=== PATIENT | male | born 1995 | race Caucasian/White ===

== ENCOUNTER 2020-08-23 01:17 | Emergency (ER) | payer SELFPAY ==
[2020-08-23] MEDS ORDERED: Lidocaine 1% 20 ML MDV INJECT ONE (01:58)
--- NOTE | 2020-08-23 01:58 | EDM.PDOC ---
ED HPI GENERAL MEDICAL PROBLEM - General Chief Complaint: Laceration Stated Complaint: cut on lip Time Seen by Provider: 08/23/20 01:42 Source of Information: Reports: Patient History Limitations: Reports: No Limitations - History of Present Illness INITIAL COMMENTS - FREE TEXT/NARRATIVE: This is a 25-year-old male. Around 1230 this morning he fell down 12 steps and has a small laceration to his lower lip and also hurt his left shoulder. He denies biting his tongue or chipping any of his teeth. He denies hitting his head or loss of consciousness. He is up-to-date with his tetanus. He denies any other injuries. Left Shoulder Pain Score (Numeric/FACES): 7 Lower Lip Pain Score (Numeric/FACES): 9 - Related Data Allergies Allergy/AdvReac Type Severity Reaction Status Date / Time Penicillins Allergy Severe Anaphylactic Verified 08/23/20 01:36 Shock pineapple Allergy Severe Anaphylactic Verified 08/23/20 01:36 Shock strawberry Allergy Severe Anaphylactic Verified 08/23/20 01:36 Shock Home Meds: Home Meds . [No Known Home Meds] 08/23/20 [History] Past Medical History Musculoskeletal History: Reports: Fracture Other Musculoskeletal History: right hand fx x 3, carrion fx, elbow fx - Infectious Disease History Infectious Disease History: Reports: Chicken Pox Social & Family History - Family History Family Medical History: No Pertinent Family History - Tobacco Use Tobacco Use Status *Q: Current Every Day Tobacco User Years of Tobacco use: 10 Packs/Tins Daily: 1 - Caffeine Use Caffeine Use: Reports: Energy Drinks - Recreational Drug Use Recreational Drug Use: Yes Drug Use in Last 12 Months: Yes Recreational Drug Type: Reports: Marijuana/Hashish ED ROS GENERAL - Review of Systems Review Of Systems: See Below Constitutional: Denies: Fever, Chills HEENT: Reports: Other (As per HPI) Respiratory: Reports: No Symptoms Cardiovascular: Reports: No Symptoms Endocrine: Reports: No Symptoms GI/Abdominal: Reports: No Symptoms : Reports: No Symptoms Musculoskeletal: Reports: Other (As per HPI) Skin: Reports: Other (As per HPI) Neurological: Reports: No Symptoms Psychiatric: Reports: No Symptoms ED EXAM, SKIN/RASH Exam: See Below Exam Limited By: No Limitations General Appearance: Alert, WD/WN, No Apparent Distress Eye Exam: Bilateral Eye: Normal Inspection Ears: Normal External Exam Nose: Normal Inspection Throat/Mouth: Other (He has a laceration to the right side of his lower lip one on the outside that is fairly well sealed and then 1 over the very top of the lip but does not cross the vermil[place] border. He does not appear to have any chipped teeth he denies biting his tongue there is no other lacerations inside his mouth. Teeth appear to be chipped and no teeth are loose. Where he has a laceration to his right lower lip is where he had a piercing that was pulled out.) Head: Normocephalic Neck: Supple Respiratory/Chest: No Respiratory Distress Back Exam: Full Range of Motion Extremities: Other (Tender in the right acromioclavicular joint area but there is no abrasions or contusions noted. He has good range of motion of that shoulder except when reaching or overhead he has pain in the acromioclavicular joint.) Neurological: Alert, Oriented Psychiatric: Normal Affect, Normal Mood Skin: Warm, Dry ED SKIN PROCEDURES - Laceration/Wound Repair Lower Face Appearance: Subcutaneous, Linear, Clean Distal NVT: Neuro & Vascular Intact Anesthetic Type: Local Local Anesthesia - Lidocaine (Xylocaine): 1% Plain Local Anesthetic Volume: 4cc Skin Prep: Chlorhexidine (Hibiciens), Sterile Drape Exploration/Debridement/Repair: Wound Explored, No Foreign Material Found Closed with: Sutures Lac/Wound length In cm: 0.8 Suture Size: 5-0 # of Sutures: 1 Suture Type: Other (Vicryl) Repaired with: Vicryl Drain Placement: No Sterile Dressing Applied: None Tetanus Status Addressed: Yes Complications: No Course - Vital Signs Last Recorded V/S: Last Vital Signs Temp 98.2 F 08/23/20 01:30 Pulse 113 H 08/23/20 01:30 Resp 18 08/23/20 01:30 BP 128/63 08/23/20 01:30 Pulse Ox 97 08/23/20 01:30 - Orders/Labs/Meds Orders: Active Orders 24 hr Category Date Time Status Shoulder Comp Lt [CR] Stat Exams 08/23/20 01:46 Taken Meds: Medications Discontinued Medications Generic Name Dose Route Start Last Admin Trade Name Freq PRN Reason Stop Dose Admin Lidocaine HCl 20 ml 08/23/20 01:58 08/23/20 02:05 Xylocaine 1% INJECT 08/23/20 01:59 Not Given ONETIME ONE Lidocaine HCl Confirm 08/23/20 02:02 Xylocaine 1% Administered 08/23/20 02:03 Dose 10 ml .ROUTE .STK-MED ONE Lidocaine HCl 10 ml 08/23/20 02:04 08/23/20 02:04 Xylocaine 1% INJECT 08/23/20 02:05 10 ml ONETIME ONE Administration - Radiology Interpretation Free Text/Narrative:: X-rays of the left shoulder do not show any acute fractures - Re-Assessments/Exams Free Text/Narrative Re-Assessment/Exam: 08/23/20 02:16 I spoke to the patient regarding the x-ray results. I also gave him instructions on keeping the lip clean. Departure - Departure Time of Disposition: 02:16 Disposition: Home, Self-Care 01 Condition: Good Clinical Impression: Laceration of lower lip Qualifiers: Encounter type: initial encounter Qualified Code(s): S01.511A - Laceration without foreign body of lip, initial encounter Acromioclavicular joint injury Qualifiers: Encounter type: initial encounter Laterality: left Qualified Code(s): S49.92XA - Unspecified injury of left shoulder and upper arm, initial encounter - Discharge Information *PRESCRIPTION DRUG MONITORING PROGRAM REVIEWED*: Not Applicable *COPY OF PRESCRIPTION DRUG MONITORING REPORT IN PATIENT MARIAJOSE: Not Applicable Instructions: Mouth Laceration, [id number], Laceration Care, Adult, [id number] Referrals: PCP,None [Primary Care Provider] - Forms: ED Department Discharge Additional Instructions: Take Tylenol or ibuprofen as needed for the soreness of your left shoulder, put ice on that left acromioclavicular joint to help with the soreness. For your lip laceration do not play with it with your tongue because you can loosen those sutures and they can come apart, stay on liquids and soft foods, avoid salt citrus and spicy foods, the sutures will absorb in your lip and do not need to be taken out, follow-up with your family doctor as needed, return to the ER if needed Sepsis Event Note (ED) - Evaluation Sepsis Screening Result: No Definite Risk - Focused Exam Vital Signs: Vital Signs Temp Pulse Resp BP Pulse Ox 08/23/20 01:30 98.2 F 113 H 18 128/63 97 - My Orders Last 24 Hours: My Active Orders 08/23/20 01:46 Shoulder Comp Lt [CR] Stat - Assessment/Plan Last 24 Hours: My Active Orders 08/23/20 01:46 Shoulder Comp Lt [CR] Stat
[2020-08-23] MEDS ORDERED: Lidocaine 1% 10 ML MDV ONE (02:02)
[2020-08-23] MEDS ORDERED: Lidocaine 1% 10 ML MDV INJECT ONE (02:04)
--- NOTE | 2020-08-24 11:12 | CR ---
Left shoulder: 3 views left shoulder were obtained. Comparison: No previous shoulder studies available. Glenohumeral joint and acromioclavicular joint appear normal. No acute fracture, dislocation or other bony abnormality is appreciated. No soft tissue calcifications are noted. Impression: 1. Unremarkable 3 view left shoulder study. Diagnostic code #1
== END 2020-08-23 02:26 | disposition home or self-care (01) ==
LOC: JD.ED 01:17
DX: S01.511A Laceration without foreign body of lip, initial encounter (principal); S49.92XA Unspecified injury of left shoulder and upper arm, initial encounter; Z88.0 Allergy status to penicillin; Z91.018 Allergy to other foods; Z72.0 Tobacco use; W10.9XXA Fall (on) (from) unspecified stairs and steps, initial encounter
CPT/HCPCS: 12011; 73030; 99283; J2001; 99282

== ENCOUNTER 2021-01-29 12:26 | Emergency (ER) | payer SELFPAY ==
[2021-01-29] MEDS ORDERED: Sodium Chloride 0.9% 10 ML Syringe FLUSH PRN (12:50)
[2021-01-29] MEDS ORDERED: Morphine 4 MG/ML Syringe IVPUSH PRN (12:51)
[2021-01-29] MEDS ORDERED: Ondansetron 4 MG/2 ML SDV IVPUSH ONE (12:51)
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
--- NOTE | 2021-01-29 14:48 | CR ---
Left humerus: 2 views of the left humerus were obtained. Comparison: No prior humerus studies available. No fracture or other bony abnormality is appreciated. Impression: 1. Nothing acute is seen on 2 view left humerus study. Diagnostic code #1
--- NOTE | 2021-01-29 14:48 | CR ---
Left forearm: 2 views of the left forearm were obtained. Comparison: No prior forearm study is available. Bony structures are intact. No acute fracture or other bony abnormality is appreciated. Impression: 1. No abnormality is appreciated on 2 view left forearm study. Diagnostic code #1
--- NOTE | 2021-01-29 14:48 | CR ---
Left elbow: 2 views of the left elbow were obtained. Comparison: No prior elbow exam is available Joint spaces are maintained. No joint effusion is seen. No acute fracture or other bony abnormality is appreciated. Impression: 1. No abnormality is identified on 2 view left elbow study. Diagnostic code #1
--- NOTE | 2021-01-29 14:57 | CT ---
CT chest Technique: Multiple axial sections were obtained from above the lung apices inferiorly through the lung bases. Intravenous contrast was utilized. Instructed coronal and sagittal images were obtained. Comparison: No prior chest CT is available., Prior chest x-ray on 04/03/20 is available. Findings: Mediastinum and hilar regions appear within normal limits. Thoracic aorta shows no aneurysm. No axillary adenopathy is seen. No pericardial effusion is seen. Lung window settings were reviewed. No acute parenchymal change is seen. No pleural effusion or pneumothorax are noted. Bone window settings were reviewed which show anterior rib fractures within the left seventh and eighth ribs as well as anterior right fifth rib which are likely old. Vertebral body heights are maintained. Visualized sternum appears intact on the reconstructed sagittal images. Impression: 1. Old rib fractures. 2. Nothing acute is seen on CT study of the chest. Diagnostic code #2 I agree with preliminary report from [facility], finalized on 01/29/21, 2:18 PM CDT, code 1 CT abdomen and pelvis Technique: Multiple axial sections were obtained from above the dome of the diaphragm inferiorly through the pubic symphysis. Intravenous contrast was utilized. No oral contrast has been given. Delayed images were also obtained through the bladder. Reconstructed coronal and sagittal images were obtained. Comparison: No prior abdominal imaging is available. Findings: Liver contains no focal parenchymal abnormality. Gallbladder contains no calcified gallstones. Spleen appears within normal limits. Adrenal glands show no nodule. Kidneys show symmetric contrast enhancement without hydronephrosis or mass. Pancreas is within normal limits. Abdominal aorta shows no aneurysm. No retroperitoneal adenopathy or mesenteric abnormalities are seen. No pelvic mass or adenopathy is identified. Delayed images show contrast within the distal ureters and bladder. Bone window settings were reviewed which show no acute osseous abnormality. Impression: 1. No acute abnormality is appreciated on CT study of the abdomen or pelvis. Diagnostic code #1 I agree with preliminary report from [facility], finalized on 01/29/21, 2:19 PM CDT, code 1
== END 2021-01-29 14:12 | disposition home or self-care (01) ==
LOC: JD.ED 12:26
DX: S20.212A Contusion of left front wall of thorax, initial encounter (principal); S40.022A Contusion of left upper arm, initial encounter; S00.83XA Contusion of other part of head, initial encounter; Z88.0 Allergy status to penicillin; Z91.018 Allergy to other foods; Y04.2XXA Assault by strike against or bumped into by another person, initial encounter
CPT/HCPCS: 36415; 71260; 73060; 73070; 73090; 74177; 80053; 80307; 83690; 85025; 85610; 86850; 86900; 86901; 96374; 96375; 99285; J2270; J2405

== ENCOUNTER 2022-03-07 18:22 | Emergency (ER) | payer BC | END 2022-03-07 19:03 | disposition home or self-care (01) | LOC: JD.ED 18:22 | DX: K08.89 Other specified disorders of teeth and supporting structures (principal); F17.210 Nicotine dependence, cigarettes, uncomplicated; Z88.0 Allergy status to penicillin; Z91.018 Allergy to other foods | CPT/HCPCS: 99282 ==

== ENCOUNTER 2024-07-10 18:48 | Emergency (ER) | payer BC, OTHER ==
[2024-07-10 19:29] LABS: BASOPHILS ABSOLUTE AUTO 0.1 K/mm3 (0.0-0.2); BASOPHILS PERCENT AUTO 0.4 % (0.0-1.0); EOSINOPHILS ABSOLUTE AUTO 0.1 K/mm3 (0.0-0.4); EOSINOPHILS PERCENT AUTO 0.3 % (0.0-6.0); HEMATOCRIT 50.5 % (42.0-52.0); HEMOGLOBIN 18.4 gm/dl (14.0-18.0); IMMATURE GRAN ABSOLUTE AUTO 0.05 K/mm3 (0.00-0.05); IMMATURE GRAN PERCENT AUTO 0.3 % (0.0-0.4); LYMPHOCYTES ABSOLUTE AUTO 0.7 K/mm3 (1.0-4.8); LYMPHOCYTES PERCENT AUTO 4.6 % (24.0-44.0); MEAN CORPUSCULAR HEMOGLOBIN 33.1 pg (28.0-32.0); MEAN CORPUSCULAR HGB CONC 36.4 g/dl (32.0-36.0); MEAN CORPUSCULAR VOLUME 90.8 fl (83.0-99.0); MEAN PLATELET VOLUME 9.9 fl (9.4-12.4); MONOCYTES ABSOLUTE AUTO 0.3 K/mm3 (0.0-0.8); NEUTROPHILS ABSOLUTE AUTO 13.5 K/mm3 (1.8-7.7); NEUTROPHILS PERCENT AUTO 92.4 % (41.0-71.0); PLATELET COUNT,PLT 201 K/mm3 (150-400); RED BLOOD CELL COUNT 5.56 M/mm3 (4.52-5.90); WHITE BLOOD CELL COUNT,WBC 14.57 K/mm3 (3.9-11.3)
[2024-07-10] MEDS: Iopamidol 755 Mg/ML 100 ML Bottle IVPUSH ONE (19:51)
[2024-07-10] MEDS: Sodium Chloride 0.9% 100 ML IV SCH (19:51)
[2024-07-10 19:57] LABS: A/G RATIO 1.3 (1-2); ALANINE AMINOTRANSFERASE,ALT 53 U/L (16-63); ALBUMIN 4.4 g/dl (3.4-5.0); ALKALINE PHOSPHATASE 131 U/L (46-116); ANION GAP 19.3 (5-15); ASPARTATE AMNIOTRANSFERASE,AST 29 U/L (15-37); BILIRUBIN TOTAL 1.2 mg/dL (0.2-1.0); BLOOD UREA NITROGEN,BUN 8 mg/dL (7-18); CALCIUM 9.4 mg/dL (8.5-10.1); CARBON DIOXIDE,CO2 23 mEq/L (21-32); CHLORIDE,CL 102 mEq/L (98-107); EST CRCL DRUG DOSING (CG) 93.96 mL/min; ESTIMATED GFR 104 mL/min (>60); GLUCOSE RANDOM 101 mg/dL (70-99); MAGNESIUM 1.5 mg/dL (1.8-2.4); POTASSIUM,K 3.3 mEq/L (3.5-5.1); PROTEIN TOTAL,TP 7.8 g/dl (6.4-8.2); SODIUM,NA 141 mEq/L (136-145); TROPONIN I HIGH SENSITIVITY < 4 pg/mL (<=76)
[2024-07-10 20:08] LABS: LACTIC ACID 1.2 mmol/L (0.4-2.0)
[2024-07-10 20:13] LABS: BASE EXCESS ARTERIAL -0.7 (-2-2.0); BICARBONATE,ARTERIAL 22.9 meq/L (22.0-26.0); O2 SATURATION ARTERIAL 94.5 % (96.0-97.0); PCO2 ARTERIAL 36.8 mmHg (35.0-45.0)
[2024-07-10] MEDS: Sodium Chloride 0.9% 10 ML Syringe FLUSH PRN (20:18)
[2024-07-10] MEDS: Ondansetron 4 MG/2 ML SDV IVPUSH ONE (20:18)
[2024-07-10] MEDS: Sodium Chloride 0.9% 1,000 ML IV SCH (20:18)
[2024-07-10 21:30] LABS: CORONAVIRUS COVID-19 NAA NEGATIVE (NEGATIVE); INFLUENZA A NAA NEGATIVE (NEGATIVE); RESPIRATORY SYNCYTIAL VIR NAA NEGATIVE (NEGATIVE)
== END 2024-07-10 22:29 | disposition home or self-care (01) ==
LOC: JD.ED 18:48
DX: E86.0 Dehydration (principal); Z88.0 Allergy status to penicillin; Z91.018 Allergy to other foods
CPT/HCPCS: 0241U; 36415; 36600; 70450; 71045; 71275; 80053; 80307; 82803; 83605; 83735; 83880; 84484; 85025; 87040; 93005; 96361; 96374; 99284; J2405; J3490; J7030; Q9967

== ENCOUNTER 2024-12-08 20:33 | Emergency (ER) | payer OTHER ==
[2024-12-08] MEDS ORDERED: Naloxone 0.4 MG/ML SDV IVPUSH PRN (22:03)
[2024-12-08] MEDS ORDERED: cefTRIAXone 1 GM Vial IVPUSH ONE (22:09)
[2024-12-08] MEDS: Clindamycin HCl 150 MG Cap PO ONE (22:19)
[2024-12-08] MEDS: fentaNYL 100 MCG/2 ML SDV IVPUSH ONE (22:19)
== END 2024-12-08 22:45 | disposition home or self-care (01) ==
LOC: JD.ED 20:33
DX: S62.326B Displaced fracture of shaft of fifth metacarpal bone, right hand, initial encounter for open fracture (principal); Z88.0 Allergy status to penicillin; Z91.018 Allergy to other foods; Z79.899 Other long term (current) drug therapy; W17.89XA Other fall from one level to another, initial encounter
CPT/HCPCS: 29125; 70450; 72125; 73130; 99284; A9270; J3010; 99283

== ENCOUNTER 2024-12-27 09:27 | Day surgery (SDC) | payer OTHER ==
[2024-12-27] MEDS ORDERED: Lactated Ringers 1,000 ML IV ONE (09:28)
[2024-12-27] MEDS: Clindamycin Phosphate in D5W 900 MG in Premix Bag 1 BAG IV ONE (09:59)
[2024-12-27] MEDS ORDERED: Propofol 200 MG/20 ML SDV ONE ×2 (10:15→10:42)
[2024-12-27] MEDS ORDERED: Midazolam 1 MG/ML 2 ML SDV ONE (10:15)
[2024-12-27] MEDS ORDERED: fentaNYL 100 MCG/2 ML SDV ONE ×2 (10:15→11:04)
[2024-12-27] MEDS ORDERED: Ondansetron 4 MG/2 ML SDV ONE (10:16)
[2024-12-27] MEDS ORDERED: Dexamethasone 4 MG/ML 5 ML MDV ONE (10:16)
[2024-12-27] MEDS ORDERED: Lidocaine 2% 5 ML SDV ONE (10:16)
[2024-12-27] MEDS: Bupivacaine 0.25% 10 ML SDV ONE (11:24)
[2024-12-27] MEDS ORDERED: Ondansetron 4 MG/2 ML SDV IVPUSH PRN (11:59)
[2024-12-27] MEDS ORDERED: fentaNYL 100 MCG/2 ML SDV IVPUSH PRN (11:59)
[2024-12-27] MEDS: HYDROmorphone 0.5 MG/0.5 ML Syringe IVPUSH PRN (12:03)
[2024-12-27] MEDS: Acetaminophen/HYDROcodone 325-5 MG Tab PO ONE (12:56)
== END 2024-12-27 13:02 | disposition home or self-care (01) ==
LOC: JD.SDS 09:27
PROVIDERS: ATTEND Orthopaedic Surgery
DX: S62.326A Displaced fracture of shaft of fifth metacarpal bone, right hand, initial encounter for closed fracture (principal); F17.200 Nicotine dependence, unspecified, uncomplicated; Z88.0 Allergy status to penicillin; Z91.018 Allergy to other foods; X58.XXXA Exposure to other specified factors, initial encounter
CPT/HCPCS: 26615; 76000; A9270; C1713; C1776; J0665; J0736; J1100; J2003; J2250; J2405; J2704; J3010; J7120; 01830